=== PATIENT | female | born 1945 | race Caucasian/White ===

== ENCOUNTER 2023-09-13 09:42 | Outpatient (CLI) | payer MEDICARE, OTHER | END 2023-09-13 23:59 | disposition home or self-care (01) | LOC: RAD 09:42 | PROVIDERS: ATTEND Family Medicine | DX: R94.01 Abnormal electroencephalogram [EEG] (principal); G40.109 Localization-related (focal) (partial) symptomatic epilepsy and epileptic syndromes with simple partial seizures, not intractable, without status epilepticus | CPT/HCPCS: 95819 ==

== ENCOUNTER 2024-01-19 14:56 | Outpatient (CLI) | payer MEDICARE, OTHER | END 2024-01-19 23:59 | disposition home or self-care (01) | LOC: MRI 14:56 | PROVIDERS: ATTEND Family Medicine | DX: M50.33 Other cervical disc degeneration, cervicothoracic region (principal); M48.02 Spinal stenosis, cervical region; M47.812 Spondylosis without myelopathy or radiculopathy, cervical region; R29.2 Abnormal reflex; R26.89 Other abnormalities of gait and mobility | CPT/HCPCS: 72141 ==